=== PATIENT | female | born 1990 | race Two or more races ===

== ENCOUNTER 2021-10-11 18:17 | Emergency (ER) | payer MEDICAID ==
[~2021-10-11] VITALS: Ht 152.4 cm; Wt 71.0 kg
[2021-10-11 18:35] VITALS: BP 121/67
[2021-10-11] MEDS ORDERED: METOCLOPRAMIDE HCL 10MG/2ML VIAL IV STA (21:49)
[2021-10-11] MEDS ORDERED: SODIUM CHLORIDE 0.9% 1,000 ML IV ONE (22:00)
[2021-10-11 22:32] LABS: CLARITY URINE CLOUDY (CLEAR); COLOR URINE YELLOW (YELLOW); KETONES URINE 4+ (NEGATIVE); LEUKOCYTE ESTERASE URINE 1+ (NEGATIVE); NITRITE URINE NEGATIVE (NEGATIVE); OCCULT BLOOD URINE NEGATIVE (NEGATIVE); PROTEIN URINE TRACE (NEGATIVE); SPECIFIC GRAVITY URINE 1.027 (1.005-1.030)
[2021-10-11 22:57] LABS: EOSINOPHILS % 0.5 % (0.0-5.0); HEMATOCRIT. 33.8 % (36.0-48.0); HEMOGLOBIN. 11.5 g/dL (12.0-16.0); LYMPHOCYTES % 30.3 % (20.0-50.0); MEAN CORPUSCULAR HEMOGLOBIN 30.9 pg (28.0-32.0); MEAN CORPUSCULAR VOLUME 91.1 fL (81.0-99.0); MEAN PLATELET VOLUME 9.3 fl (7.4-10.4); MONOCYTES % 7.4 % (2.0-8.0); NEUTROPHILS % 60.8 % (40.0-76.0); PLATELET 274 x1000/uL (130-400); RED BLOOD CELL COUNT 3.71 mill/uL (4.2-5.4); RED CELL DISTRIBUTION WIDTH 14.7 % (11.6-14.6)
[2021-10-11] MEDS ORDERED: CEPH500C2 MT (22:58)
[2021-10-11 23:10] LABS: CHLORIDE 105 mEq/L (98-107)
== END 2021-10-11 23:00 | disposition left against medical advice (07) ==
LOC: ER 18:17
DX: O99.281 Endocrine, nutritional and metabolic diseases complicating pregnancy, first trimester (principal); O21.9 Vomiting of pregnancy, unspecified; E87.6 Hypokalemia; O26.891 Other specified pregnancy related conditions, first trimester; R10.84 Generalized abdominal pain; O99.011 Anemia complicating pregnancy, first trimester; Z3A.01 Less than 8 weeks gestation of pregnancy
CPT/HCPCS: 36415; 80053; 81003; 83690; 85025; 96361; 96374; 99283; J2765; J7030

== ENCOUNTER 2021-12-05 10:19 | Emergency (ER) | payer MEDICAID ==
[~2021-12-05] VITALS: Ht 157.5 cm; Wt 72.0 kg
[~2021-12-05 10:19] MED LIST: CEPH500C2 MT
[2021-12-05 10:21] VITALS: BP 116/58
[2021-12-05] MEDS ORDERED: METOCLOPRAMIDE HCL 5MG TABLET PO ONE (11:30)
[2021-12-05] MEDS ORDERED: ACETAMINOPHEN 325MG TABLET PO ONE (11:30)
[2021-12-05 12:21] LABS: CLARITY URINE CLEAR (CLEAR); COLOR URINE YELLOW (YELLOW); KETONES URINE NEGATIVE (NEGATIVE); LEUKOCYTE ESTERASE URINE 1+ (NEGATIVE); NITRITE URINE NEGATIVE (NEGATIVE); OCCULT BLOOD URINE NEGATIVE (NEGATIVE); PH URINE 6.5 (4.5-8.0); PROTEIN URINE NEGATIVE (NEGATIVE); SPECIFIC GRAVITY URINE 1.017 (1.005-1.030)
[2021-12-05 14:19] LABS: BASOPHILS % 0.8 % (0.0-2.0); EOSINOPHILS % 1.9 % (0.0-5.0); HEMATOCRIT. 32.7 % (36.0-48.0); LYMPHOCYTES % 26.7 % (20.0-50.0); MEAN CORPUSCULAR HEMOGLOBIN 31.6 pg (28.0-32.0); MEAN CORPUSCULAR VOLUME 94.1 fL (81.0-99.0); MEAN PLATELET VOLUME 9.5 fl (7.4-10.4); MONOCYTES % 6.4 % (2.0-8.0); NEUTROPHILS % 64.2 % (40.0-76.0); PLATELET 243 x1000/uL (130-400); RED BLOOD CELL COUNT 3.48 mill/uL (4.2-5.4); RED CELL DISTRIBUTION WIDTH 16.1 % (11.6-14.6)
[2021-12-05 14:24] LABS: CHLORIDE 106 mEq/L (98-107)
[2021-12-05 14:49] LABS: B-HCG QUANTITATIVE 33533 mIU/mL (<3)
[2021-12-05] MEDS ORDERED: METO5TAB86 MT (15:27)
[2021-12-05] MEDS ORDERED: CEPH250C2 MT (15:27)
[2021-12-05] MEDS ORDERED: ACET-2708 MT (15:27)
== END 2021-12-05 15:42 | disposition home or self-care (01) ==
LOC: ER 10:19
DX: O23.42 Unspecified infection of urinary tract in pregnancy, second trimester (principal); N39.0 Urinary tract infection, site not specified; Z3A.15 15 weeks gestation of pregnancy
CPT/HCPCS: 36415; 76801; 80053; 81003; 81025; 84702; 85025; 86850; 86900; 86901; 87086; 87210; 99284; J8597

== ENCOUNTER 2022-12-18 07:35 | Emergency (ER) | payer MEDICAID, OTHER ==
[~2022-12-18] VITALS: Ht 152.4 cm; Wt 77.0 kg
[~2022-12-18 07:35] MED LIST changes: +ACET-2708 MT; +CEPH250C2 MT; +METO5TAB86 MT
[2022-12-18 07:39] VITALS: BP 116/69; PULSE 61; RESP 14; TEMP 98.6; O2SAT 100
[2022-12-18 09:01] LABS: BASOPHILS % 1.1 % (0.0-2.0); EOSINOPHILS % 2.1 % (0.0-5.0); HEMATOCRIT. 36.5 % (36.0-48.0); HEMOGLOBIN. 12.3 g/dL (12.0-16.0); LYMPHOCYTES % 35.6 % (20.0-50.0); MEAN CORPUSCULAR HEMOGLOBIN 32.5 pg (28.0-32.0); MEAN CORPUSCULAR VOLUME 96.7 fL (81.0-99.0); MEAN PLATELET VOLUME 9.2 fl (7.4-10.4); MONOCYTES % 6.7 % (2.0-8.0); NEUTROPHILS % 54.5 % (40.0-76.0); PLATELET 273 x1000/uL (130-400); RED BLOOD CELL COUNT 3.77 mill/uL (4.2-5.4); RED CELL DISTRIBUTION WIDTH 13.8 % (11.6-14.6)
[2022-12-18 09:07] LABS: CHLORIDE 109 mEq/L (98-107)
[2022-12-18 09:18] LABS: B-HCG QUANTITATIVE 48 mIU/mL (<3)
[2022-12-18] MEDS ORDERED: PNV1TABL76 MT (10:29)
== END 2022-12-18 10:47 | disposition home or self-care (01) ==
LOC: ER 07:35
DX: O46.91 Antepartum hemorrhage, unspecified, first trimester (principal); Z3A.01 Less than 8 weeks gestation of pregnancy
CPT/HCPCS: 36415; 76801; 80053; 81025; 84702; 85025; 86850; 86900; 99284

== ENCOUNTER 2023-08-09 10:34 | Emergency (ER) | payer OTHER ==
[~2023-08-09] VITALS: Ht 152.4 cm; Wt 75.0 kg
[~2023-08-09 10:34] MED LIST changes: +PNV1TABL76 MT
[2023-08-09 11:00] VITALS: O2SAT 100
[2023-08-09 11:33] LABS: BASOPHILS % 0.7 % (0.0-2.0); EOSINOPHILS % 1.5 % (0.0-5.0); HEMOGLOBIN. 11.9 g/dL (12.0-16.0); LYMPHOCYTES % 22.1 % (20.0-50.0); MEAN CORPUSCULAR HEMOGLOBIN 32.6 pg (28.0-32.0); MEAN CORPUSCULAR VOLUME 95.9 fL (81.0-99.0); MEAN PLATELET VOLUME 9.4 fl (7.4-10.4); MONOCYTES % 5.4 % (2.0-8.0); NEUTROPHILS % 70.3 % (40.0-76.0); PLATELET 259 x1000/uL (130-400); RED BLOOD CELL COUNT 3.65 mill/uL (4.2-5.4); RED CELL DISTRIBUTION WIDTH 14.6 % (11.6-14.6); WHITE BLOOD COUNT 8.8 x1000/uL (4.5-11.0)
[2023-08-09 11:59] LABS: ALANINE AMINOTRANSFERASE 8 IU/L (10-49); ALBUMIN 4.3 g/dL (3.2-4.8); ASPARTATE AMINOTRANSFERASE 14 IU/L (<34); B-HCG QUANTITATIVE 40363 mIU/mL (<3); BILIRUBIN TOTAL 0.3 mg/dL (0.1-1.0); CARBON DIOXIDE 24 mEq/L (21-32); CHLORIDE 106 mEq/L (98-107); CREATININE 0.5 mg/dL (0.6-1.0); GLUCOSE 98 mg/dL (70-105); POTASSIUM 3.7 mEq/L (3.5-5.1); PROTEIN TOTAL 6.9 g/dL (6.0-8.3); SODIUM 136 mEq/L (136-145); UREA NITROGEN BLOOD 6 mg/dL (9-23)
[2023-08-09] MEDS ORDERED: CEPH500T MT (13:54)
[2023-08-09 14:24] LABS: CLARITY URINE CLEAR (CLEAR); COLOR URINE YELLOW (YELLOW); GLUCOSE URINE NEGATIVE (NEGATIVE); KETONES URINE TRACE (NEGATIVE); LEUKOCYTE ESTERASE URINE 1+ (NEGATIVE); NITRITE URINE NEGATIVE (NEGATIVE); OCCULT BLOOD URINE TRACE (NEGATIVE); PH URINE 6.5 (4.5-8.0); PROTEIN URINE NEGATIVE (NEGATIVE); SPECIFIC GRAVITY URINE 1.005 (1.005-1.030); UROBILINOGEN URINE 0.2 E.U./dL (0.2-1.0)
[2023-08-09 14:53] LABS: BACTERIA URINE 1+; RBC URINE 0-2 /hpf (0-2); SQUAMOUS EPITHELIAL CELL URINE 2+ /lpf (RARE/1+); YEAST URINE NONE SEEN
[2023-08-09 15:52] VITALS: BP 122/82; PULSE 92; RESP 18; TEMP 98.3
== END 2023-08-09 15:54 | disposition home or self-care (01) ==
LOC: ER 10:34
DX: O23.31 Infections of other parts of urinary tract in pregnancy, first trimester (principal); O46.8X1 Other antepartum hemorrhage, first trimester; O99.281 Endocrine, nutritional and metabolic diseases complicating pregnancy, first trimester; N39.0 Urinary tract infection, site not specified; Z3A.13 13 weeks gestation of pregnancy
CPT/HCPCS: 36415; 76801; 80053; 81003; 84702; 85025; 86850; 86900; 99284

== ENCOUNTER 2023-10-07 08:17 | Emergency (ER) | payer OTHER ==
[~2023-10-07] VITALS: Ht 160 cm; Wt 76.8 kg
[~2023-10-07 08:17] MED LIST changes: +CEPH500T MT
[2023-10-07 08:34] VITALS: O2SAT 100
[2023-10-07 09:06] LABS: BASOPHILS % 0.8 % (0.0-2.0); EOSINOPHILS % 0.8 % (0.0-5.0); HEMATOCRIT. 35.1 % (36.0-48.0); HEMOGLOBIN. 11.8 g/dL (12.0-16.0); LYMPHOCYTES % 22.3 % (20.0-50.0); MEAN CORPUSCULAR HEMOGLOBIN 32.9 pg (28.0-32.0); MEAN CORPUSCULAR HGB CONC 33.7 g/dL (31.0-37.0); MEAN CORPUSCULAR VOLUME 97.4 fL (81.0-99.0); MEAN PLATELET VOLUME 9.6 fl (7.4-10.4); MONOCYTES % 6.3 % (2.0-8.0); NEUTROPHILS % 69.8 % (40.0-76.0); PLATELET 266 x1000/uL (130-400); RED CELL DISTRIBUTION WIDTH 14.5 % (11.6-14.6); WHITE BLOOD COUNT 7.5 x1000/uL (4.5-11.0)
[2023-10-07 09:17] LABS: CHLORIDE 105 mEq/L (98-107); POTASSIUM 3.5 mEq/L (3.5-5.1); SODIUM 137 mEq/L (136-145)
[2023-10-07 09:18] LABS: CALCIUM 8.7 mg/dL (8.7-10.4); CARBON DIOXIDE 23 mEq/L (21-32)
[2023-10-07 09:23] LABS: B-HCG QUANTITATIVE > 1000 mIU/mL (<3); CREATININE 0.5 mg/dL (0.6-1.0); GLUCOSE 82 mg/dL (70-105); UREA NITROGEN BLOOD 7 mg/dL (9-23)
[2023-10-07 09:25] LABS: ALANINE AMINOTRANSFERASE 10 IU/L (10-49); ALBUMIN 4.6 g/dL (3.2-4.8); ASPARTATE AMINOTRANSFERASE 16 IU/L (<34); BILIRUBIN TOTAL 0.5 mg/dL (0.1-1.0); PROTEIN TOTAL 7.9 g/dL (6.0-8.3)
[2023-10-07 09:41] LABS: CLARITY URINE CLEAR (CLEAR); COLOR URINE YELLOW (YELLOW); GLUCOSE URINE NEGATIVE (NEGATIVE); KETONES URINE NEGATIVE (NEGATIVE); LEUKOCYTE ESTERASE URINE 1+ (NEGATIVE); NITRITE URINE NEGATIVE (NEGATIVE); OCCULT BLOOD URINE TRACE (NEGATIVE); PROTEIN URINE NEGATIVE (NEGATIVE); SPECIFIC GRAVITY URINE 1.021 (1.005-1.030); UROBILINOGEN URINE 0.2 E.U./dL (0.2-1.0)
[2023-10-07 10:00] LABS: BACTERIA URINE 1+; RBC URINE 0-2 /hpf (0-2); SQUAMOUS EPITHELIAL CELL URINE 3+ /lpf (RARE/1+); YEAST URINE NONE SEEN
[2023-10-07] MEDS ORDERED: CEPH250C2 MT (10:15)
[2023-10-07 10:21] VITALS: BP 111/61; PULSE 72; RESP 16; TEMP 98.4
== END 2023-10-07 10:40 | disposition home or self-care (01) ==
LOC: ER 08:17
DX: O46.92 Antepartum hemorrhage, unspecified, second trimester (principal); O99.282 Endocrine, nutritional and metabolic diseases complicating pregnancy, second trimester; Z3A.22 22 weeks gestation of pregnancy
CPT/HCPCS: 36415; 76805; 80053; 81003; 84702; 85025; 99285